=== PATIENT | female | born 1990 | race Caucasian/White ===

== ENCOUNTER → 2021-06-27 13:27 | Outpatient (BNVA) | payer BC, SELFPAY | PROVIDERS: PCP Obstetrics & Gynecology Obstetrics; Visit Provider Registered Nurse Neonatal Intensive Care | DX: Z20.822 Contact with and (suspected) exposure to COVID-19 (principal); R68.83 Chills (without fever) | CPT/HCPCS: 87635 ==

== ENCOUNTER 2022-02-08 09:49 | Outpatient (RCR) | payer OTHER, SELFPAY | END 2022-02-19 23:59 | disposition home or self-care (01) | LOC: MPT 09:49 | PROVIDERS: PCP Obstetrics & Gynecology Obstetrics; Referring Provider Obstetrics & Gynecology; Visit Provider Obstetrics & Gynecology | DX: M62.89 Other specified disorders of muscle (principal); M62.838 Other muscle spasm; N94.19 Other specified dyspareunia; R10.2 Pelvic and perineal pain | CPT/HCPCS: 97161 ==

== ENCOUNTER 2022-02-20 | Outpatient (RCR) | payer OTHER, SELFPAY | END 2022-03-22 23:59 | disposition home or self-care (01) | LOC: MPT | PROVIDERS: PCP Obstetrics & Gynecology Obstetrics; Referring Provider Obstetrics & Gynecology; Visit Provider Obstetrics & Gynecology | DX: M62.89 Other specified disorders of muscle (principal); M62.838 Other muscle spasm; N94.19 Other specified dyspareunia; R10.2 Pelvic and perineal pain | CPT/HCPCS: 97140; 97530 ==

== ENCOUNTER → 2022-11-30 14:30 | Outpatient (BNVA) | payer BC, SELFPAY | PROVIDERS: PCP Obstetrics & Gynecology Obstetrics; Visit Provider Podiatrist Foot & Ankle Surgery | DX: Q82.8 Other specified congenital malformations of skin (principal); G57.92 Unspecified mononeuropathy of left lower limb | CPT/HCPCS: 73630 ==

== ENCOUNTER → 2023-08-23 16:36 | Outpatient (BNVA) | payer BC, SELFPAY | PROVIDERS: PCP Registered Nurse; Visit Provider Registered Nurse | DX: R35.0 Frequency of micturition (principal); R10.2 Pelvic and perineal pain | CPT/HCPCS: 81000; 87070; 87205 ==

== ENCOUNTER 2023-12-15 12:26 | Outpatient (CLI) | payer BC, SELFPAY ==
--- NOTE | 2023-12-15 12:45 | US_ITS ---
WS: [id number] ULTRASOUND RENAL TECHNIQUE: Ultrasound examination of both kidneys. CLINICAL INFORMATION: R35.0 - Frequency of micturition COMPARISON: None. FINDINGS: Bilateral ureteral jets visualized. RIGHT: Right kidney is normal in size and appearance. Echogenicity: Normal. Cortical thickness: 0.7 cm; Normal. Hydronephrosis: None. Perinephric fluid: None. Right kidney measures: 9.7 cm x 3.8 cm x 5.1 cm. LEFT: Left kidney is normal in size and appearance. Echogenicity: Normal. Cortical thickness: 1.0 cm; Normal. Hydronephrosis: None. Perinephric fluid: None. Left kidney measures: 10.6 cm x 5.7 cm x 4.3 cm. Normal visualized aorta. Prevoid bladder volume 494 cc Post void bladder volume 33 cc IMPRESSION: 1. Normal renal ultrasound. No hydronephrosis. 2. Post void residual 33 cc 3. Bilateral ureteral jets visualized.
== END 2023-12-15 12:27 | disposition home or self-care (01) ==
LOC: RAD 12:27
PROVIDERS: PCP Registered Nurse; Visit Provider Registered Nurse
DX: R35.0 Frequency of micturition (principal); R30.1 Vesical tenesmus
CPT/HCPCS: 76770; 76857

== ENCOUNTER → 2024-03-30 11:15 | Outpatient (BNVA) | payer BC, SELFPAY | PROVIDERS: PCP Registered Nurse; Visit Provider Emergency Medicine | DX: R35.0 Frequency of micturition (principal); B37.31 Acute candidiasis of vulva and vagina; R30.0 Dysuria | CPT/HCPCS: 81000; 87086 ==

== ENCOUNTER 2024-04-24 09:17 | Outpatient (CLI) | payer BC, SELFPAY ==
--- NOTE | 2024-04-24 09:30 | CT_ITS ---
WS: [id number] CT abdomen pelvis wo con [id number] REASON FOR EXAM: R10.2 - Pelvic and perineal pain IV CONTRAST ADMINISTERED: None. TOTAL EXAM DLP: 403.[address] scans at [facility] use at least one of these dose optimization techniques: automat ed exposure control; mA and/or kV adjustment per patient size (includes targeted exams where dose is matched to clinical indication); or iterative reconstruction. FINDINGS: ABDOMEN Lung bases are unremarkable. Normal volume liver and spleen without focal lesion. Unremarkable pancreas. Adrenals and kidneys are normal. No bowel abnormality is identified. No mass or adenopathy. No free or loculated fluid. Normal lumbar spine. PELVIS: Small ovarian cysts bilaterally, 15 mm maximum diameter. Unremarkable uterus. Normal urinary bladder. No mass, focal fluid collection, or free fluid. Normal bony pelvis. CT/CT abdomen pelvis wo con [id number] IMPRESSION: No abdominal abnormality. Small ovarian cysts as above.
== END 2024-04-24 09:18 | disposition home or self-care (01) ==
LOC: RAD 09:18
PROVIDERS: PCP Registered Nurse; Visit Provider Registered Nurse
DX: R10.2 Pelvic and perineal pain (principal); R10.84 Generalized abdominal pain; N83.202 Unspecified ovarian cyst, left side; N83.201 Unspecified ovarian cyst, right side
CPT/HCPCS: 74176

== ENCOUNTER 2024-11-20 14:48 | Outpatient (CLI) | payer BC, SELFPAY ==
--- NOTE | 2024-11-20 14:54 | XR_ITS ---
WS: [id number] Exam: XR chest 2V* [id number] Date/Time of Exam: 11/20/2024 3:17 PM Reason For Exam: R06.02 - Shortness of breath No priors. The lungs are clear and fully inflated. Normal cardiomediastinal silhouette. Bony structures are inta ct. Mild upper thoracic dextroscoliosis. XR/XR chest 2V* [id number] IMPRESSION: 1. Negative chest.
== END 2024-11-20 14:49 | disposition home or self-care (01) ==
LOC: RAD 14:50
PROVIDERS: PCP Registered Nurse; Visit Provider Registered Nurse
DX: R06.02 Shortness of breath (principal); M41.84 Other forms of scoliosis, thoracic region
CPT/HCPCS: 71046